=== PATIENT | male | born 1995 | race African-American/Black ===

== ENCOUNTER 2021-11-27 09:49 | Emergency (ER) | payer MEDICAID ==
[~2021-11-27] VITALS: Ht 193 cm; Wt 130.2 kg
[2021-11-27 10:07] VITALS: BP 150/80
== END 2021-11-27 11:51 | disposition home or self-care (01) ==
LOC: ER 09:49
DX: M65.351 Trigger finger, right little finger (principal); F17.210 Nicotine dependence, cigarettes, uncomplicated; Z90.89 Acquired absence of other organs
CPT/HCPCS: 29130